=== PATIENT | male | born 1970 | race Caucasian/White ===

== ENCOUNTER → 2018-05-31 | Outpatient (CLI) | payer OTHER ==
[~2018-05-31] MED LIST: ACET500T68 PO; ASCO500C9 PO; ASPI81TA50 PO; CYCL10TA2 PO; CYCL1DRO EACHEYE; FLUT16SP NS; LORA10CA PO; MAGN400C PO; MONT10TA9 PO; MULT-246 PO; NAPR-683 PO; TRAM-48 PO
--- NOTE | 2018-05-31 13:56 | PAIN ---
DATE OF SERVICE: 05/31/2018 INITIAL CONSULTATION FOR PAIN CLINIC CHIEF COMPLAINT: Low back and right lower extremity pain. HISTORY OF PRESENT ILLNESS: This is a 48-year-old male who presents with history of pain for about 2 years, worse over the past 6 months or so in the low back without any specific injury or action he is aware of, but thinks they have been aggravating his low back such as reaching into a sky diver, doing weightlifting to the point where he could hardly bear weight on his legs and this was about 6 months ago. The patient reports it has gotten slightly better, but still significant pain in the low back and across the low back and the bilateral lower extremities, worse on the right than the left with some shooting pain in the right posterior gluteus, posterior lateral thigh, lateral anterior thigh, medial thigh and lower leg with occasional warmth sensation and heat feeling in the feet, especially on the right side. The patient reports it is worse with standing, walking, changing positions, activity as noted, better with sitting or lying down. It awakens him from sleep about once or twice a night and most nights does wake him sleep, does not affect his bowel or bladder control, but does affect his ability to walk, not using any assistive device to ambulate; however, the patient has had previous physical therapies, exercise, which he is doing currently and stretching and strengthening on his own and exercising on his own. The patient tried Ultram as well as Flexeril and Naprosyn. The first one Ultram do decrease the pain but only about 20-30%. Naprosyn has not been helpful nor has Tylenol. He has tried [id number]. The patient did have MRI scan of the lumbar spine dated 03/04/2018 showing L4-L5 and L5-S1 degenerative changes, mild L4-L5 spinal stenosis and mild left foraminal narrowing, mild canal narrowing at L5-S1 with mild right foraminal stenosis. The patient reports no loss of motor function, but significant fatigability, especially the right leg with standing, walking, even for more than about 20-30 minutes. The patient's disability rate from 0-10, 10 being the worst, is a 3 with family home responsibilities, social activity, sexual behavior, self-care and life support activities, 5 with occupation and 8 with recreational activities. PAST MEDICAL HISTORY: Significant for hearing loss, wears glasses, sleep apnea, arthritis. PREVIOUS SURGERY: Include vasectomy in 2012, skin cancer removal in 2016. CURRENT MEDICATIONS: Include Restasis, acetaminophen, Naprosyn, cyclobenzaprine, Ultram, magnesium, vitamin C, multivitamins, Claritin, montelukast and daily baby aspirin, fluticasone. ALLERGIES: The patient has no known drug allergies. FAMILY HISTORY: Significant for strokes, prostate cancer and otherwise unknown. The patient's father was adopted. SOCIAL HISTORY: The patient does not drink alcohol, does not smoke. He does not use illegal, illicit or recreational drugs. He is , has 3 children, living at home, active , currently lives in [place], [place]. REVIEW OF SYSTEMS: The patient's review of systems is positive for those items mentioned in history of present illness. All systems reviewed and otherwise negative. It is complete, full and well documented on the patient's chart. PHYSICAL EXAMINATION: VITAL SIGNS: The patient's blood pressure is 108/75, pulse 83, respirations 18, temperature is 98.2 degrees Fahrenheit, 5 feet 8 inches and weighs 206 pounds. GENERAL: The patient is awake, alert, oriented, appropriate, very pleasant demeanor. HEENT: Head is normocephalic, atraumatic. Extraocular movements intact and symmetrical. Oral cavity: Mucous membranes moist and pink. Dentition intact. NECK: Shows anterior throat supple without palpable lymphadenopathy noted. Swallow reflex symmetrical. CHEST: Shows normal with inspection. Breath sounds clear to auscultation bilaterally. HEART: Shows S1, S2 clear. No murmurs auscultated. ABDOMEN: Soft, nontender, nondistended. No palpable organomegaly is noted. No rebound or guarding demonstrated. BACK: Shows spine grossly in the midline. Normal appearing thoracic kyphosis and lumbar lordotic curvature. Lumbar paraspinous muscle shows symmetrical on inspection, with palpation shows some moderate tenderness in the low lumbar distribution only without radiation. The patient has good rotational motion both laterally as well as extension and flexion without difficulty. EXTREMITIES: Lower extremities show deep tendon reflexes at 2+ in the patellar, 1+ tendo calcaneus tendons. Motor exam is strong with 5/5 dorsiflexion, extension, quadriceps and hamstring flexion equal. Peripheral pulses are 1+ posterior tibia. No peripheral edema is noted bilaterally. Lower extremities are warm and dry to touch, equal in color and appearance. The patient shows negative straight leg raise on the left, but mildly positive on the right at about 45 degrees, decreased with knee flexion with pain in the lateral thigh. Gaenslen Elbert maneuvers are negative bilaterally as well. The patient is able to stand, stand on toes without difficulty or loss of balance, walks with a normal appearing gait, not using any assistive devices to ambulate. SKIN: Warm and dry, good turgor. No edema. No swelling, rashes or bruising. IMPRESSION: 1. This is a 48-year-old male with about 2-year history of increasing pain in a radicular fashion of the right lower extremity in L4-L5 dermatomal distribution. 2. Lumbar MRI as noted. 3. History of arthritis. 4. Hearing loss. PLAN: Options were discussed with the patient including conservative medical management, physical therapy, interventional techniques. He would like to pursue interventional techniques. We discussed a lumbar epidural steroid injection using description as well as anatomical models to describe the procedure. The patient will require preauthorization from his insurance provider first. We will obtain this and then plan on lumbar epidural steroid injection. In the meantime, the patient maintained with his stretching and strengthening exercises routine as best tolerated and follow up once preauthorization is obtained. We will plan on lumbar epidural steroid injection at that time. ARLYN CAPUTO MD DR: ELLIOTT/anselmo JOB#: [id number] / [id number]
== END | disposition home or self-care (01) ==
LOC: PNCL 08:46
PROVIDERS: ATTEND Anesthesiology
DX: M47.817 Spondylosis without myelopathy or radiculopathy, lumbosacral region (principal); M48.061 Spinal stenosis, lumbar region without neurogenic claudication; M19.90 Unspecified osteoarthritis, unspecified site; G47.30 Sleep apnea, unspecified; H91.90 Unspecified hearing loss, unspecified ear; Z82.3 Family history of stroke; Z80.42 Family history of malignant neoplasm of prostate
CPT/HCPCS: G0463

== ENCOUNTER → 2018-06-06 | Outpatient (CLI) | payer OTHER ==
[~2018-06-06] MED LIST changes: +IOHEXOL 180 MG/ML 10 ML VIAL. ONE; +methylPREDNISolone ACETATE 40 MG/ML VIAL. ONE; +methylPREDNISolone ACETATE 80 MG/ML VIAL. ONE
--- NOTE | 2018-06-06 10:28 | PAIN ---
DATE OF SERVICE: 06/06/2018 PROGRESS NOTE FOR PAIN CLINIC DIAGNOSES: Lumbar radiculopathy with lumbar spinal stenosis and lumbar degenerative disk disease. HISTORY OF PRESENT ILLNESS: The patient is a 48-year-old male who returns for followup status post initial evaluation and preauthorization for lumbar epidural steroid injection. The patient has acquired that now and would like to proceed. He still has pain in the low back, into the right greater than left lower extremity, posterior gluteus, posterolateral thigh, lateral anterior thigh, medial thigh and to the knee on the right side, worse than the left, but present bilaterally. The patient reports it is an 8 on a scale of 10 at its worst, 4 on a scale of 10 at its average and 2 at its least and it is a 4 today. The patient reports it is a sharp, tight, shooting, tingling, burning, cramping, some twitching in the left groin and burning in the right foot. The patient reports no new motor or sensory deficits. No new bowel or bladder incontinence. PHYSICAL EXAMINATION: VITAL SIGNS: The patient's blood pressure 108/75, pulse 79, respirations 18 and temperature 98.7 degrees Fahrenheit. Height is 5 feet 8 inches and weight is 205 pounds. GENERAL: The patient is awake, alert, oriented, appropriate and very pleasant in demeanor. HEENT EXAMINATION: Shows normocephalic, atraumatic. Extraocular movements are intact and symmetrical. Oral cavity, mucous membranes are moist and pink. Dentition is intact. NECK: Shows anterior throat supple, without palpable lymphadenopathy noted. Swallow reflex is symmetrical. CHEST: Shows normal on inspection. Breath sounds are clear to auscultation bilaterally. HEART: Shows S1, S2 clear. No murmurs auscultated. ABDOMEN: Soft, nontender and nondistended. No palpable organomegaly is noted. No rebound or guarding demonstrated. BACK: Shows spine grossly in the midline. Normal-appearing thoracic kyphosis and lumbar lordotic curvature. Lumbar paraspinous muscle shows symmetrical on inspection, with some moderate palpable tenderness in the low lumbar distribution bilaterally, but only diffusely without radiation. The patient has good rotational motion of the lumbar spine. EXTREMITIES: Lower extremities show deep tendon reflexes 2+ in the patellar, 1+ tendo calcaneus tendons. Motor exam is strong with 5/5 dorsiflexion, extension, quadriceps and hamstring flexion equal. Peripheral pulses are 1+ posterior tibial. No peripheral edema is noted. Options were discussed with the patient. The patient's old chart was reviewed as was his current medication regimen updated. Current review of systems updated today as well. We will proceed with a lumbar epidural steroid injection today with fluoroscopic guidance. Risks were again discussed including, but not limited to bleeding, infection, possibility of epidural hematoma and subsequent neurological compromise, dural puncture, headaches, spinal cord and/or nerve damage, side effects of steroid medication and poor results regarding pain control. The patient understands and wishes to proceed. The patient will return to the clinic in approximately 2 weeks for followup. He was counseled on his return appointment, activity level and side effects to be aware of. DIAGNOSES: Lumbar radiculopathy with lumbar degenerative disk disease and lumbar spinal stenosis. PROCEDURE: Lumbar epidural steroid injection in a translaminar approach at L4-L5 level using C-arm fluoroscopic guidance under sterile prep and drape using local anesthetic. MEDICATION INJECTED: A total of 120 mg Depo-Medrol plus 10 mL of preservative-free normal saline and 2 mL of Isovue for contrast. CONDITION AT DISCHARGE: Stable. The patient tolerated the procedure well, had no complications. ARLYN CAPUTO MD DR: ELLIOTT/nts JOB#: [id number] / [id number]
== END | disposition home or self-care (01) ==
LOC: PNCL 09:00
PROVIDERS: ATTEND Anesthesiology
DX: M51.16 Intervertebral disc disorders with radiculopathy, lumbar region (principal); M48.061 Spinal stenosis, lumbar region without neurogenic claudication
CPT/HCPCS: 62323; J1030; J1040; Q9965

== ENCOUNTER → 2018-06-21 | Outpatient (CLI) | payer OTHER ==
[~2018-06-21] MED LIST changes: -IOHEXOL 180 MG/ML 10 ML VIAL. ONE; -methylPREDNISolone ACETATE 40 MG/ML VIAL. ONE; -methylPREDNISolone ACETATE 80 MG/ML VIAL. ONE
--- NOTE | 2018-06-21 20:33 | PAIN ---
DATE OF SERVICE: 06/21/2018 DIAGNOSES: Lumbar radiculopathy with lumbar degenerative disk disease, lumbar spinal stenosis. HISTORY OF PRESENT ILLNESS: The patient is a 48-year-old male who returns for followup status post lumbar epidural steroid injection x 1. The patient reports about 70% improvement initially, now about 50% improvement overall. However, since the past 3 weeks or so, the patient reports the pain is in the low back and into the lower extremities, more on the right than the left, into the posterior gluteus, posterolateral thigh, lateral anterior thigh and medial thigh. The patient reports it is a sharp, dull, tight, tingling, burning, severe at times with some burning feeling in the feet with exercise and activity and just after exercising. The patient reports sleeping well at night, does not awaken him from sleep, better with sitting or lying down, worse with standing and walking. The patient reports it is 6 on a scale 10 at its worst, 3 on average, 1 at its least and is 3 today. The patient reports sitting and standing for prolonged periods, greater than 30-40 minutes, seems to exacerbate the pain as well. The patient reports no new motor or sensory deficits, no bowel or bladder incontinence or other complaints. PHYSICAL EXAMINATION: VITAL SIGNS: The patient's blood pressure is 119/74, pulse 74, respirations 18, temperature 98.4 degrees Fahrenheit, height is 5 feet 8 inches, weight is 207 pounds. GENERAL: The patient is awake, alert, oriented, appropriate, very pleasant demeanor. HEENT: Head shows normocephalic, atraumatic. Extraocular movements intact and symmetrical. Oral cavity: Mucous membranes are moist and pink. Dentition is intact. NECK: Shows anterior throat supple without palpable lymphadenopathy noted. Swallow reflex symmetrical. CHEST: Shows normal on inspection. Breath sounds are clear to auscultation bilaterally. HEART: Shows S1, S2 clear. No murmurs auscultated. ABDOMEN: Soft, nontender, nondistended. No palpable organomegaly is noted. No rebound or guarding demonstrated. BACK: Shows spine grossly in the midline. Normal-appearing thoracic kyphosis and lumbar lordotic curvature. Lumbar paraspinous muscle shows symmetrical on inspection; on palpation, shows some moderate tenderness but only diffusely in the low lumbar distribution bilaterally. No evidence of atrophy, hypertrophy. No trigger points or radiation of pain. The patient has good rotational motion of lumbar spine, both laterally as well as extension and flexion without pain. EXTREMITIES: Lower extremities show deep tendon reflexes 2+ in the patella, 1+ in the tendo calcareous tendons. Motor exam is strong with 5/5 dorsiflexion, extension, quadriceps and hamstring flexion and symmetrical. Peripheral pulses are 1+ posterior tibial. No peripheral edema is noted. Options were discussed with the patient. The patient's old chart was reviewed as was his current medication regimen updated. Current review of systems updated today and we will preauthorize the patient for a second lumbar epidural steroid injection. He still has some radicular pain in the L4-L5 dermatomal distribution, worse on the right than the left, but significantly improved since his last injection and still about 50% improved even after 3 weeks. The patient will return to the clinic in approximately 1 week to plan on second lumbar epidural steroid injection at that time. ARLYN CAPUTO MD DR: ELLIOTT/anselmo JOB#: [id number] / [id number]
== END | disposition home or self-care (01) ==
LOC: PNCL 09:35
PROVIDERS: ATTEND Anesthesiology
DX: M51.16 Intervertebral disc disorders with radiculopathy, lumbar region (principal); M48.061 Spinal stenosis, lumbar region without neurogenic claudication
CPT/HCPCS: G0463

== ENCOUNTER → 2018-06-27 | Outpatient (CLI) | payer OTHER ==
[~2018-06-27] MED LIST changes: +IOHEXOL 180 MG/ML 10 ML VIAL. ONE; +MONT10TA49 PO; -MONT10TA9 PO; +methylPREDNISolone ACETATE 40 MG/ML VIAL. ONE; +methylPREDNISolone ACETATE 80 MG/ML VIAL. ONE
--- NOTE | 2018-06-27 12:49 | PAIN ---
DATE OF SERVICE: 06/27/2018 DIAGNOSES: Lumbar radiculopathy with lumbar degenerative disk disease, lumbar spinal stenosis. HISTORY OF PRESENT ILLNESS: The patient is a 48-year-old male who returns for followup status post lumbar epidural steroid injection x 1 with about 50% improvement. The patient was awaiting preauthorization, has now obtained that for second injection and would like to proceed. The patient reports still pain in the low back, right lower extremity as it was previously in the posterior gluteus, posterior thigh, lateral thigh, anterior thigh, medial thigh into the medial lower leg and some pain in the hamstrings. The patient reports it is tingling, burning, aching, sharp, tight, becoming more constant and severe at times, can awaken him from sleep occasionally but not every night. The patient reports his pain as a 9 on a scale of 10 at its worst, 6 on average and a 1 at its least and is a 6 today. The patient reports no new motor or sensory deficits, no new bowel or bladder incontinence or other complaints. He continues to do exercises as far as stationary bicycling, also swimming despite the pain and is trying to stay as active as possible. The patient reports no new changes or other concerns. PHYSICAL EXAMINATION: VITAL SIGNS: The patient's blood pressure 114/75, pulse 68, respirations 16, temperature is 98.2 degrees Fahrenheit, height is 5 feet 8 inches and weight is 207 pounds. GENERAL: The patient is awake, alert, oriented, appropriate, very pleasant demeanor. HEENT: Head shows normocephalic, atraumatic. Extraocular movements are intact and symmetrical. Oral cavity, mucous membranes are moist and pink. Dentition is intact. NECK: Shows anterior throat supple without palpable lymphadenopathy noted. Swallow reflex is symmetrical. CHEST: Shows normal on inspection. Breath sounds clear to auscultation bilaterally. HEART: Shows S1, S2 clear. No murmurs auscultated. ABDOMEN: Soft, nontender, nondistended. No palpable organomegaly is noted. No rebound or guarding demonstrated. BACK: Shows spine grossly in the midline. Normal appearing thoracic kyphosis and lumbar lordotic curvature. Lumbar paraspinous musculature shows symmetrical on inspection and palpation shows some moderate tenderness diffusely in the lumbar paraspinal musculature bilaterally, but without radiation. The patient shows good rotational motion of lumbar spine, both laterally as well as extension and flexion without difficulty. EXTREMITIES: The patient's lower extremities show deep tendon reflexes at 2+ in the patellar, 1+ tendo-calcaneus tendons are equal. Motor exam is strong with 5/5 dorsiflexion and extension and symmetrical. Peripheral pulses are 1+ posterior tibia. No peripheral edema is noted bilaterally. Options were discussed with the patient. The patient's old chart was reviewed as his current medication regimen and updated. Current review of systems is updated today as well. We will proceed with a second in the series of lumbar epidural steroid injection today with fluoroscopic guidance. Risks were again discussed including, but not limited to bleeding, infection, possibility of epidural hematoma, subsequent neurological compromise, dural puncture, headaches, spinal cord and/or nerve damage, side effects of steroid medication and poor results regarding pain control. The patient understands and wished to proceed. The patient to return to clinic in approximately 2 weeks for followup, was counseled on return appointment, activity level and side effects to be aware of. DIAGNOSES: Lumbar radiculopathy with lumbar spinal stenosis, lumbar degenerative disk disease. PROCEDURE: Lumbar epidural steroid injection, translaminar approach L4-L5 level using C-arm fluoroscopic guidance under sterile prep and drape using local anesthetic. MEDICATION INJECTED: A total of 120 mg Depo-Medrol plus 10 mL of preservative-free normal saline and 2 mL of Isovue for contrast. CONDITION AT DISCHARGE: Stable. The patient tolerated the procedure well, had no complications. ARLYN CAPUTO MD DR: ELLIOTT/anselmo JOB#: [id number] / [id number]
== END | disposition home or self-care (01) ==
LOC: PNCL 07:55
PROVIDERS: ATTEND Anesthesiology
DX: M51.16 Intervertebral disc disorders with radiculopathy, lumbar region (principal); M48.061 Spinal stenosis, lumbar region without neurogenic claudication
CPT/HCPCS: 62323; J1030; J1040; Q9965

== ENCOUNTER → 2018-10-09 | Outpatient (CLI) | payer OTHER ==
[~2018-10-09] MED LIST changes: -IOHEXOL 180 MG/ML 10 ML VIAL. ONE; -MONT10TA49 PO; +MONT10TA9 PO; -methylPREDNISolone ACETATE 40 MG/ML VIAL. ONE; -methylPREDNISolone ACETATE 80 MG/ML VIAL. ONE
--- NOTE | 2018-10-10 07:55 | PAIN ---
DATE OF SERVICE: 10/09/2018 PROGRESS NOTE FOR PAIN CLINIC DIAGNOSES: Lumbar radiculopathy with lumbar degenerative disk disease, lumbar spinal stenosis. HISTORY OF PRESENT ILLNESS: The patient is a 48-year-old male who returns for followup status post lumbar epidural steroid injection x 2, last seen on 06/27/2018. The patient did very well with about 75% improvement in the pain in his low back and right lower extremity. The patient reports he has been doing very well until this morning. He was jogging and bent down to run underneath some overhanging tree branches near the trail he was jogging on and had some immediate pain in the low back radiating to bilateral posterior gluteus with some burning heat sensation in the right thigh as well. The patient reports he stopped running, walked the rest of the way home. It was not too terribly uncomfortable, but even sitting or driving the car was beginning to bring the pain that began on his way here. The patient reports pain is a 9 on a scale of 10 at its worst, 3 on average, 0 at its least over the past week and is a 5 on talking with him today. The patient reports it is aching, tight, shooting, cramping, warm burning sensation in the right leg, mostly in the lateral and medial calf and lateral thigh. The patient reports it was radiating and becoming more severe this morning. No new motor or sensory deficits, no new bowel or bladder incontinence or other complaints. PHYSICAL EXAMINATION: VITAL SIGNS: The patient's blood pressure is 124/77, pulse 67, respirations 18, temperature 97.9 degrees Fahrenheit. Height is 5 feet 8 inches, weight is 211 pounds. GENERAL: The patient is awake, alert, oriented, appropriate, very pleasant demeanor. HEENT: Head is normocephalic, atraumatic. Extraocular movements are intact and symmetrical. Oral cavity: Mucous membranes moist and pink. Dentition is intact. NECK: Shows anterior throat supple without palpable lymphadenopathy noted. Swallow reflex is symmetrical. CHEST: Shows normal on inspection. Breath sounds clear to auscultation bilaterally. HEART: Shows S1, S2 clear. No murmurs auscultated. ABDOMEN: Soft, nontender, nondistended. No palpable organomegaly is noted. No rebound or guarding demonstrated. BACK: Shows spine grossly in the midline. Normal appearing thoracic kyphosis and lumbar lordotic curvature. Lumbar paraspinous muscle shows symmetrical on inspection, with palpation shows some mild tenderness, but only mildly in the middle and lower distribution of paraspinous muscles bilaterally without specific atrophy, hypertrophy without specific trigger points, no tenderness over the spinous processes. The patient has good rotational motion of lumbar spine, both laterally greater than 10 degrees right and left as well as extension greater than 10 degrees, forward flexion 45 degrees without significant pain reported. EXTREMITIES: The patient's lower extremities show deep tendon reflexes 2+ in the patellar and 1+ in the tendo calcaneus tendons. Motor exam is strong with 5/5 dorsiflexion, extension, quadriceps and hamstring flexion and symmetrical. Peripheral pulses are 1+ posterior tibia. No peripheral edema is noted. Options were discussed with the patient. The patient's old chart was reviewed as her current medication regimen updated. Current review of systems updated today as well. We will preauthorize the patient for lumbar epidural steroid injections. He has done very well with these in the past with some increased pain this morning after running in the low back, right lower extremity in a radicular fashion following L4-L5 dermatomal distribution. The patient will wait for preauthorization. In the meantime, we will try Medrol Dosepak. The patient was given instruction as well as side effects to be aware of with the medication and will follow up in approximately 1 week to plan on lumbar epidural steroid injection at that time L4-L5 level, translaminar approach. ARLYN CAPUTO MD DR: ELLIOTT/anselmo JOB#: [id number] / [id number]
== END | disposition home or self-care (01) ==
LOC: PNCL 13:24
PROVIDERS: ATTEND Anesthesiology
DX: M51.16 Intervertebral disc disorders with radiculopathy, lumbar region (principal); M48.061 Spinal stenosis, lumbar region without neurogenic claudication
CPT/HCPCS: G0463

== ENCOUNTER → 2018-10-22 | Outpatient (CLI) | payer OTHER ==
[~2018-10-22] MED LIST changes: +IOHEXOL 180 MG/ML 10 ML VIAL. ONE; +methylPREDNISolone ACETATE 40 MG/ML VIAL. ONE; +methylPREDNISolone ACETATE 80 MG/ML VIAL. ONE
--- NOTE | 2018-10-22 08:30 | PAIN ---
DATE OF SERVICE: 10/22/2018 PROGRESS NOTE FOR PAIN CLINIC DIAGNOSES: Lumbar radiculopathy with lumbar spinal stenosis and lumbar degenerative disk disease. HISTORY OF PRESENT ILLNESS: The patient is a 48-year-old male who returns for followup status post lumbar epidural steroid injections x 2 with about 75% improvement after the last injection. The patient reports still some increased pain in the low back with a running. He was having difficulty running even as recently as yesterday with the pain in the low back itself with running. The patient reports it is a 9 on a scale of 10 at its worst over the past week, 6 on average, 1 at its least and is a 6 today. The patient reports it is sharp, dull, shooting with some tingling and burning in the right leg and foot radiating into the posterior gluteus, lateral thigh, anterior thigh, medial thigh, medial lower leg and foot. The patient reports it is worse with driving a car is noticeable as well and especially with running. The patient reports he did try Medrol Dosepak, which helped but only while he was taking it. The patient reports still it does not awaken him from sleep at night. No new motor or sensory deficits and no bowel or bladder incontinence. PHYSICAL EXAMINATION: VITAL SIGNS: The patient's blood pressure 131/76, pulse 63, respirations 18 and temperature is 98.1 degrees Fahrenheit. Height is 5 feet 8 inches and weight is 214 pounds. GENERAL: The patient is awake, alert, oriented, appropriate and very pleasant demeanor. HEENT: Head shows normocephalic and atraumatic. Extraocular movements are intact and symmetrical. The patient wears eye glasses. Oral cavity: Mucous membranes moist and pink. Dentition is intact. NECK: Shows anterior throat supple without palpable lymphadenopathy noted. Swallow reflex is symmetrical. CHEST: Shows normal with inspection. Breath sounds clear to auscultation bilaterally. HEART: Shows S1 and S2 clear. No murmurs auscultated. ABDOMEN: Soft, nontender and nondistended. No palpable organomegaly is noted. No rebound or guarding demonstrated. BACK: Shows spine grossly in the midline. Normal-appearing cervical lordotic curvature, thoracic kyphotic curvature and lumbar lordotic curvature. Lumbar paraspinous muscle shows symmetrical on inspection and on palpation shows some moderate tenderness diffusely but only in the middle and lower distribution of the paraspinous muscles without radiation. No trigger points. No atrophy or hypertrophy. The patient has good rotational motion of the lumbar spine, both laterally greater than 10 degrees right and left as well as extension greater than 10 degrees, forward flexion 45 degrees without difficulty or pain reported. EXTREMITIES: Lower extremities show deep tendon reflexes at 2+ in the patellar, 1+ tendo-calcaneus tendons. Motor exam is strong with 5/5 dorsiflexion, extension, quadriceps and hamstring flexion and are symmetrical as well. Peripheral pulses are 1+ posterior tibia. No peripheral edema is noted bilaterally. Options were discussed with the patient. The patient's old chart was reviewed as well as his current medication regimen updated. Current review of systems updated today as well. We will proceed with the third lumbar epidural steroid injection today with fluoroscopic guidance. Risks were again discussed including, but not limited to bleeding, infection, possibility of epidural hematoma, subsequent neurologic compromise, dural puncture, headaches, spinal cord and/or nerve damage, side effects of steroid medication and poor results regarding pain control. The patient understands and wished to proceed. The patient will return to the clinic in approximately 2 weeks for followup, was counseled as to return appointment, activity level and side effects to be aware of. DIAGNOSES: Lumbar radiculopathy with lumbar spinal stenosis and lumbar degenerative disk disease. PROCEDURE: Lumbar epidural steroid injection, translaminar approach at the L4-L5 level using C-arm fluoroscopic guidance under sterile prep and drape using local anesthetic. MEDICATION INJECTED: A total of 120 mg Depo-Medrol plus 10 mL of preservative-free normal saline and 2 mL of contrast. CONDITION AT DISCHARGE: Stable. The patient tolerated the procedure well and had no complications. ARLYN CAPUTO MD DR: ELLIOTT/anselmo JOB#: [id number] / [id number]
== END ==
LOC: PNCL 07:45
PROVIDERS: ATTEND Anesthesiology
DX: M51.16 Intervertebral disc disorders with radiculopathy, lumbar region (principal); M48.061 Spinal stenosis, lumbar region without neurogenic claudication
CPT/HCPCS: 62323; J1030; J1040; Q9965

== ENCOUNTER → 2019-03-03 | Outpatient (CLI) | payer OTHER ==
[~2019-03-03] MED LIST changes: +CELE200C PO; -IOHEXOL 180 MG/ML 10 ML VIAL. ONE; +MONT10TA49 PO; -MONT10TA9 PO; -methylPREDNISolone ACETATE 40 MG/ML VIAL. ONE; -methylPREDNISolone ACETATE 80 MG/ML VIAL. ONE
--- NOTE | 2019-03-03 18:15 | PAIN ---
DATE OF SERVICE: 03/03/2019 PROGRESS NOTE FOR PAIN CLINIC DIAGNOSES: Lumbar radiculopathy with lumbar spinal stenosis and lumbar degenerative disk disease. HISTORY OF PRESENT ILLNESS: The patient is a 48-year-old male who returns for followup status post lumbar epidural steroid injections x3. The patient did very well with about 90% improvement. The patient reports for about 3 months, the pain has been reduced significantly. The patient is having some pain increasing; however, now with increased activity, even day-to-day activities in the low back and into the right greater than left lower extremity. The patient reports it is aching, sharp, dull, tight, tingling, burning at times, sometimes constant with activity, changes positions frequently standing, sitting, etc. The patient reports no loss of motor function. No bowel or bladder incontinence. The patient reports his pain is a 9 on a scale of 10 at its worst in the past week, 4 on average and 2 at its least and is 4 today. The patient reports no other changes. PHYSICAL EXAMINATION: VITAL SIGNS: The patient's blood pressure 119/82, pulse 76, respirations 16, temperature 98.7 degrees Fahrenheit, height is 5 feet 8 inches, weight is 211 pounds. GENERAL: The patient is awake, alert, oriented, appropriate, very pleasant demeanor. HEENT: Head shows normocephalic, atraumatic. Extraocular movements are intact and symmetrical. Oral cavity: Mucous membranes moist and pink. Dentition is intact. NECK: Shows anterior throat supple without palpable lymphadenopathy noted. Swallow reflex symmetrical. CHEST: Shows normal on inspection. Breath sounds clear to auscultation bilaterally. HEART: Shows S1, S2 clear. No murmurs auscultated. ABDOMEN: Soft, nontender, nondistended. No palpable organomegaly is noted. No rebound or guarding demonstrated. BACK: Shows spine grossly in the midline. Normal appearing thoracic kyphosis and lumbar lordotic curvature. Lumbar paraspinous muscle shows symmetrical with inspection. On palpation shows some moderate tenderness diffusely bilaterally, but only diffusely without radiation. The patient has good rotational motion of lumbar spine, both laterally as well as extension and flexion without significant difficulty or pain reported. EXTREMITIES: Lower extremities show deep tendon reflexes 2+ in the patellar, 1+ tendo-calcaneus tendons. Motor exam is strong with 5/5 dorsiflexion, extension, quadriceps and hamstring flexion symmetrical. Peripheral pulses are 1+ posterior tibia. No peripheral edema is noted. Options were discussed with the patient. The patient's old chart was reviewed as his current medication regimen updated. Current review of systems updated today as well. We will preauthorize the patient for an additional lumbar epidural steroid injection. He is doing very well with these, about 90% improvement for the first 3 months. The pain is returning now in a radicular fashion, slightly greater on the right than left within the L4-5 dermatomal distribution. The patient will continue with stretching and strength exercises working out as much as possible as far as tolerated and will follow up as scheduled. ARLYN CAPUTO MD DR: ELLIOTT/anselmo JOB#: [id number] / [id number]
== END | disposition home or self-care (01) ==
LOC: PNCL 08:11
PROVIDERS: ATTEND Anesthesiology
DX: M51.16 Intervertebral disc disorders with radiculopathy, lumbar region (principal); M48.061 Spinal stenosis, lumbar region without neurogenic claudication
CPT/HCPCS: G0463

== ENCOUNTER → 2019-03-17 | Outpatient (CLI) | payer OTHER ==
[~2019-03-17] MED LIST changes: +IOHEXOL 180 MG/ML 10 ML VIAL. ONE; +methylPREDNISolone ACETATE 40 MG/ML VIAL. ONE; +methylPREDNISolone ACETATE 80 MG/ML VIAL. ONE
--- NOTE | 2019-03-17 08:45 | PAIN ---
DATE OF SERVICE: 03/17/2019 PROGRESS NOTE FOR PAIN CLINIC DIAGNOSES: Lumbar radiculopathy with lumbar degenerative disk disease and lumbar spinal stenosis. HISTORY OF PRESENT ILLNESS: The patient is a 48-year-old male who returns for followup status post evaluation and preauthorization for lumbar epidural steroid injection. The patient is with low back pain, right lower extremity pain, posterior gluteus, lateral thigh, lateral anterior thigh, medial thigh with burning and tingling in the foot on the right. The patient reports it is aching, sharp, dull, tight, shooting. Originally when waking up in the morning, it is more tight and shooting and often aching and sharp across the low back. The patient reports it is 8-9 on a scale of 10 at its worst over the past week, 4-5 on an average, 2 at its least and is a 4 today. The patient reports no new motor or sensory deficits, no new bowel or bladder incontinence. The patient was awaiting preauthorization and is obtained and would like to proceed. PHYSICAL EXAMINATION: VITAL SIGNS: His blood pressure 113/62, pulse 61, respirations 16, temperature is 98.4 degrees Fahrenheit. Height is 5 feet 8 inches. Weight is 211 pounds. GENERAL: The patient is awake, alert, oriented, appropriate, very pleasant demeanor. HEENT: Head shows normocephalic and atraumatic. Extraocular movements are intact and symmetrical. Oral cavity shows mucous membranes moist and pink. Dentition is intact. NECK: Shows anterior throat supple without palpable lymphadenopathy noted. Swallow reflex symmetrical. CHEST: Shows normal on inspection. Breath sounds are clear to auscultation bilaterally. HEART: Shows S1 and S2 clear. No murmurs auscultated. ABDOMEN: Soft, nontender, nondistended. No palpable organomegaly is noted. No rebound or guarding demonstrated. BACK: Shows spine grossly in the midline, normal appearing thoracic kyphosis and lumbar lordotic curvature. Lumbar paraspinous muscle shows symmetrical on inspection, on palpation shows some moderate tenderness diffusely bilaterally, going diffusely without significant radiation. EXTREMITIES: The patient's lower extremities show deep tendon reflexes 2+ in the patellar, 1+ tendo-calcaneus tendons. Motor exam is strong with 5/5 dorsiflexion and extension, quadriceps and hamstring flexion symmetrical. Peripheral pulses are 1+ posterior tibia. No peripheral edema is noted bilaterally. Options were discussed with the patient. The patient's old chart was reviewed as his current medication regimen updated. Current review of systems updated today as well. We will proceed with a lumbar epidural steroid injection today with fluoroscopic guidance. Risks were again discussed including, but not limited to bleeding, infection, possibility of epidural hematoma, subsequent neurological compromise, dural puncture, headaches, spinal cord and/or nerve damage, side effects of steroid medication and poor results regarding pain control. The patient understands and wished to proceed. The patient will return to clinic in approximately 2 weeks for followup. He was counseled on his return appointment, activity level and side effects to be aware of. DIAGNOSES: Lumbar radiculopathy with lumbar degenerative disk disease and lumbar spinal stenosis. PROCEDURE: Lumbar epidural steroid injection, translaminar approach L4-L5 level using C-arm fluoroscopic guidance under sterile prep and drape using local anesthetic. MEDICATIONS INJECTED: A total of 120 mg of Depo-Medrol plus 10 mL of preservative-free normal saline and 2 mL of contrast. CONDITION AT DISCHARGE: Stable. The patient tolerated procedure well, had no complications. ARLYN CAPUTO MD DR: ELLIOTT/anselmo JOB#: [id number] / [id number]
== END ==
LOC: PNCL 07:56
PROVIDERS: ATTEND Anesthesiology
DX: M51.16 Intervertebral disc disorders with radiculopathy, lumbar region (principal); M48.061 Spinal stenosis, lumbar region without neurogenic claudication
CPT/HCPCS: 62323; J1030; J1040; Q9965